=== PATIENT | male | born 1950 | race Caucasian/White ===

== ENCOUNTER 2019-10-16 07:27 | Emergency (ER) | payer OTHER, MEDICARE ==
[~2019-10-16] VITALS: Ht 172.7 cm; Wt 90.0 kg
--- NOTE | 2019-10-16 07:47 | NUR ---
PT HERE TODAY FOR SWELLING OF LEFT EYE. PAIN HAS BEEN PRESENT SINCE SATURDAY, PT WENT TO SATURDAY AND WAS PRESCRIBED STEROIDS, AND IS HERE BECAUSE EYE HAS NOT BEEN GETTING BETTER. PT IS WORRIED IT IS A SINUS INFECTION STATING HE TAKES ABX BEFORE A DENTIST APPT AND HE JUST RECENTLY HAD ONE. PT IS RESTING ON GURNEY, CONNECTED TO MONITOR, STATES HE DOES NOT WANT A BLANKET. CALL LIGHT IN REACH.
--- NOTE | 2019-10-16 07:51 | NUR ---
PA AT BEDSIDE ASSESSING PT NOW.
[2019-10-16] MEDS ORDERED: SODIUM CHLORIDE FLUSH 10ML SYR IVF ONE (08:00)
[2019-10-16] MEDS ORDERED: FLUORESCEIN/BENOXINATE 5 ML DROPS OP ONE (08:00)
[2019-10-16] MEDS ORDERED: PROPARACAINE OPHTH 0.5%, 15ML ONE (08:13)
[2019-10-16] MEDS ORDERED: FLUORESCEIN OPHTHALMIC 1 MG STRIP ONE (08:13)
--- NOTE | 2019-10-16 08:29 | NUR ---
PIV STARTED. BLOOD DRAWN.
[2019-10-16 08:48] LABS: BASOPHILS # (AUTO) 0.02 x10^3/uL (0-0.1); BASOPHILS % (AUTO) 0 % (0-1); EOSINOPHILS # (AUTO) 0.03 x10^3/uL (0-0.4); EOSINOPHILS % (AUTO) 1 % (1-7); LYMPHOCYTES # (AUTO) 0.48 x10^3/uL (1-3.4); LYMPHOCYTES % (AUTO) 8 % (22-44); MD NO; MEAN CORPUSCULAR HEMOGLOBIN 31.4 pg (27.5-34.5); MEAN CORPUSCULAR HGB CONC 33.7 g/dL (33.2-36.2); MEAN CORPUSCULAR VOLUME 93.1 fL (81-97); MEAN PLATELET VOLUME 8.5 fL (7.4-10.4); MONOCYTES % (AUTO) 12 % (2-9); NEUTROPHILS # (AUTO) 4.53 x10^3/uL (1.8-6.8); NEUTROPHILS % (AUTO) 79 % (42-75); PLATELET COUNT 148 x10^3/uL (130-400); RED BLOOD COUNT 4.94 x10^6/uL (4.38-5.82); RED CELL DISTRIBUTION WIDTH 13.6 % (9.4-14.8)
[2019-10-16 08:52] VITALS: BP 132/49
[2019-10-16 08:56] LABS: ALBUMIN 3.4 g/dL (3.4-5.0); ANION GAP 5 mmol/L (5-15); CALCIUM 8.2 mg/dL (8.5-10.1); CHLORIDE 104 mmol/L (98-107); CREATININE 1.28 mg/dL (0.7-1.3)
--- NOTE | 2019-10-16 09:11 | NUR ---
PT IN CT NOW.
--- NOTE | 2019-10-16 09:20 | NUR ---
PT BACK FROM CT. RESTING ON [employer]. CONNECTED TO MONITOR.
[2019-10-16] MEDS ORDERED: OMNIPAQUE 350 MG/ML, 75ML BOTTLE ONE (09:23)
--- NOTE | 2019-10-16 09:43 | NUR ---
MD AT BEDSIDE TO DISCUSS POC WITH PT NOW.
--- NOTE | 2019-10-16 09:53 | NUR ---
PT AWARE OF DC PLAN. PIV REMOVED. GETTING DRESSED NOW.
== END 2019-10-16 10:12 | disposition home or self-care (01) ==
LOC: ED 10:05
DX: H10.022 Other mucopurulent conjunctivitis, left eye (principal); L03.213 Periorbital cellulitis
CPT/HCPCS: 36415; 70487; 80048; 82040; 85025; 99284; Q9967

== ENCOUNTER 2019-10-18 05:41 | Emergency (ER) | payer MEDICARE, OTHER ==
[~2019-10-18] VITALS: Ht 172.7 cm; Wt 88.7 kg
--- NOTE | 2019-10-18 06:05 | NUR ---
THIS IS A 69Y M THAT COMES IN W/ FACIAL SWELLING, HEAD AND NECK PAIN. PT REPORTS HE WAS HERE TWO DAYS AGO GOT ABX AND HAS BEEN TAKING THEM PRESCRIBED. PT STS SWELLING HAS GOTTEN WORSE. NOTABLE SWELLING LOCALIZED TO LEFT FACE, JAW AND HEAD. THERE IS A DIFINITIVE LINE WHERE THE SWELLING BEGINS, MIDLINE FOREHEAD. PT CONNECTED TO MONITORING, VSS CALL LIGHT IN REACH.
[2019-10-18] MEDS ORDERED: FLUORESCEIN OPHTHALMIC 1 MG STRIP ONE (06:21)
--- NOTE | 2019-10-18 06:22 | NUR ---
MD TO BEDSIDE TO ASSESS PT
--- NOTE | 2019-10-18 06:51 | NUR ---
REPORT RECEIVED FROM PALOMA TORRES. PT AMBULATORY WITH STEADY GAIT TO BATHROOM.
--- NOTE | 2019-10-18 06:55 | NUR ---
PT NOW RESTING ON GURNEY. LEFT SIDE OF FACE NOTED TO BE SWOLLEN WITH SCABS PRESENT. PT DENIES NEEDS AT THIS TIME. CONNECTED TO MONITOR. VSS. MUÑOZ.
[2019-10-18 07:18] LABS: CALCIUM 8.6 mg/dL (8.5-10.1); CHLORIDE 103 mmol/L (98-107)
[2019-10-18 07:22] LABS: ALBUMIN 3.4 g/dL (3.4-5.0); ANION GAP 7 mmol/L (5-15); CREATININE 1.17 mg/dL (0.7-1.3)
--- NOTE | 2019-10-18 07:22 | NUR ---
REQUEST SENT TO PHARMACY FOR MEDICATION.
[2019-10-18] MEDS ORDERED: VALACYCLOVIR 500MG TABLET PO SCH (07:30)
[2019-10-18 07:37] LABS: MD YES; MEAN CORPUSCULAR HEMOGLOBIN 31.7 pg (27.5-34.5); MEAN CORPUSCULAR HGB CONC 34.3 g/dL (33.2-36.2); MEAN CORPUSCULAR VOLUME 92.5 fL (81-97); MEAN PLATELET VOLUME 8.9 fL (7.4-10.4); PLATELET COUNT 124 x10^3/uL (130-400); RED CELL DISTRIBUTION WIDTH 13.5 % (9.4-14.8)
[2019-10-18 07:42] LABS: <PLATELET ESTIMATE> DECREASED; <PLT MORPHOLOGY> NORMAL PLT MORPH; <RBC MORPHOLOGY> NORMAL; BAND#(MANUAL) 0.11 x10^3/uL; BANDS%(MANUAL) 2 % (0-7); EOS#(MANUAL) 0.16 x10^3/uL (0.0-0.4); EOS% (MANUAL) 3 % (1-7); LYMPH#(MANUAL) 1.73 x10^3/uL (1-3.4); LYMPHS% (MANUAL) 32 % (22-44); MONOS% (MANUAL) 13 % (2-9); REACTIVE LYMPHS # (MANUAL) 0.27 x10^3/uL (0-0); REACTIVE LYMPHS % (MANUAL) 5 % (0-0); SEG#(MANUAL) 2.43 x10^3/uL (1.8-6.8); SEGS% (MANUAL) 45 % (42-75)
--- NOTE | 2019-10-18 08:06 | NUR ---
OPTHOMOLOGIST AT BEDSIDE ASSESSING PT NOW.
--- NOTE | 2019-10-18 08:29 | NUR ---
PT MEDICATED PER EMAR. RESTING ON GURNEY. NADN. DENIES NEEDS.
[2019-10-18 08:30] VITALS: BP 141/54
--- NOTE | 2019-10-18 08:47 | NUR ---
REPORT GIVEN TO PALOMA ESPAÑA.
== END 2019-10-18 09:55 | disposition home or self-care (01) ==
LOC: ED 06:43
DX: L03.213 Periorbital cellulitis (principal); B02.9 Zoster without complications; M10.9 Gout, unspecified
CPT/HCPCS: 36415; 80048; 82040; 85025; 99283

== ENCOUNTER → 2020-12-01 | Outpatient (CLI) | payer MEDICARE, OTHER ==
[~2020-12-01] MED LIST: NONE PER PT
== END | disposition home or self-care (01) ==
LOC: STAR 14:35
PROVIDERS: ATTEND Orthopaedic Surgery
DX: Z01.818 Encounter for other preprocedural examination (principal); G56.03 Carpal tunnel syndrome, bilateral upper limbs; Z20.822 Contact with and (suspected) exposure to COVID-19
CPT/HCPCS: 87635; 93005

== ENCOUNTER 2020-12-07 07:27 | Day surgery (SDC) | payer MEDICARE, OTHER ==
[~2020-12-07] VITALS: Ht 172.7 cm; Wt 85.2 kg
[2020-12-07 08:07] VITALS: BP 134/61
[2020-12-07] MEDS ORDERED: NO HOME MEDS PER PT (08:23)
[2020-12-07] MEDS ORDERED: LACTATED RINGERS 1,000 ML IV SCH (08:30)
[2020-12-07] MEDS ORDERED: CHLORHEXIDINE 15 ML UDC MM ONE (08:30)
[2020-12-07] MEDS ORDERED: MIDAZOLAM 1 MG/ML, 2ML ONE (08:47)
[2020-12-07] MEDS ORDERED: PROPOFOL 10 MG/ML, 20ML ONE (08:48)
== END 2020-12-07 10:55 | disposition home or self-care (01) ==
LOC: OUT 07:27
PROVIDERS: ATTEND Orthopaedic Surgery
DX: G56.03 Carpal tunnel syndrome, bilateral upper limbs (principal); Z79.891 Long term (current) use of opiate analgesic; Z87.891 Personal history of nicotine dependence
CPT/HCPCS: 64721; J2250; J2704; J7120